=== PATIENT | male | born 1950 | race Caucasian/White ===

== ENCOUNTER 2021-07-21 06:59 | Day surgery (SDC) | payer OTHER ==
[2021-07-20 14:20] LABS: Absolute Lymphocytes (CBC) 1.4 K/uL (0.7-4.9); Hematocrit 42.7 % (39.6-49.0); Lymphocytes % 20.9 % (15.3-44.8); MPV 8.1 fL (7.6-11.3); RBC Red Blood Cell Count 4.76 M/uL (4.33-5.43)
[2021-07-20 14:30] LABS: Potassium 4.1 mmol/L (3.5-5.1)
[2021-07-20 14:43] LABS: Protime INR 2.28
[~2021-07-21 06:59] MED LIST: ATROPINE SULF 1 MG/10 ML SYR IV ONE; METOPROLOL TARTRATE 5 MG/5 ML INJ IV ONE; MIDAZOLAM HCL 10 ML ONE
[2021-07-21] MEDS ORDERED: NA CHLORIDE 0.9% 500 ML ONE (07:08)
[2021-07-21] MEDS ORDERED: FLUMAZENIL 0.1 MG/ML (5 mL VIAL) IV ONE (07:08)
[2021-07-21 07:51] VITALS: O2SAT 100
[2021-07-21 09:31] VITALS: BP 107/64
--- NOTE | 2021-07-22 18:01 | EKG ---
Test Date: 2021-07-21 Test Time: 08:15:42 Policy Writer: MEASUREMENT RESULTS: Intervals: Rate: 69 RI: 200 QRSD: 144 QT: 454 QTc: 486 [place]: P: 48 RI: 200 QRS: -43 T: 123 INTERPRETIVE STATEMENTS: Demand pacemaker, interpretation is based on intrinsic rhythm Sinus rhythm with premature ventricular complexes or fusion complexes Left axis deviation Right bundle branch block Left ventricular hypertrophy with repolarization abnormality Abnormal ECG No previous ECG available for comparison Electronically Signed On 07-22-21 17:58:37 CDT by Shashank Sanchez
--- NOTE | 2021-07-24 15:05 | OP ---
Date of Procedure: 07/21/2021 Surgeon: Jg Roberto MD Procedure: Direct current cardioversion. Indication: Recurrent atrial fibrillation, status post ablation, pacemaker. Had failed amiodarone, beta brian, sotalol. Procedure In Detail: Brought to recovery room as an outpatient on 07/21/2021. He was given 10 mg of IV Versed x1. He was given 1 shock of 100 joules and it converted to sinus rhythm. There were no complications or blood loss. Final Diagnosis: Status post successful cardioversion from atrial fibrillation to sinus rhythm. We will double his metoprolol. Continue his anticoagulants. He can go home today and see me in the office in 2 weeks. in the office in 2 weeks. Continue metoprolol and anticoagulants. CLIFFORD/WINDY Voice ID: [id number] Report ID: [id number]
== END 2021-07-21 09:23 | disposition home or self-care (01) ==
LOC: CCL 06:59
DX: I48.0 Paroxysmal atrial fibrillation (principal); I49.3 Ventricular premature depolarization; I34.0 Nonrheumatic mitral (valve) insufficiency; I34.1 Nonrheumatic mitral (valve) prolapse; E78.2 Mixed hyperlipidemia; Z95.0 Presence of cardiac pacemaker; Z20.822 Contact with and (suspected) exposure to COVID-19
CPT/HCPCS: 36415; 80048; 85025; 85610; 85730; 92960; 93005; J2250; J7040; U0002

== ENCOUNTER 2021-09-20 10:32 | Day surgery (SDC) | payer OTHER ==
[2021-09-19 11:55] LABS: Absolute Lymphocytes (CBC) 1.2 K/uL (0.7-4.9); Hematocrit 43.1 % (39.6-49.0); Lymphocytes % 17.4 % (15.3-44.8); MCV 90.4 fL (80-100); MPV 8.4 fL (7.6-11.3); RBC Red Blood Cell Count 4.76 M/uL (4.33-5.43)
[2021-09-19 12:02] LABS: Protime INR 1.03
--- NOTE | 2021-09-19 12:03 | RAD REPORT ---
EXAM DESCRIPTION: RAD - Chest Pa And Lat (2 Views) - 09/19/2021 11:37 am CLINICAL HISTORY: pre procedure screening, atrial fibrillation COMPARISON: None TECHNIQUE: Frontal and lateral views of the chest were obtained. FINDINGS: The lungs are clear of a peripheral mass or consolidation. Interstitial pattern is mildly prominent suspected to be baseline. Acute failure or volume overload are not suspected. Two lead left subclavian pacemaker is present. Heart size is normal and central vasculature is within normal limits. No pleural effusion or pneu mothorax seen. No acute bony finding noted. No aortic abnormality. IMPRESSION: No acute cardiopulmonary process.
[2021-09-19 12:13] LABS: Potassium 3.9 mmol/L (3.5-5.1)
[2021-09-19 12:20] LABS: SARS-CoV-2 Antigen Rapid Res Negative (Negative)
--- NOTE | 2021-09-19 13:17 | EKG ---
Test Date: 2021-09-19 Test Time: 11:28:33 [employer] Vp: EMANUEL MEASUREMENT RESULTS: Intervals: Rate: 60 ID: [id number] QRSD: 106 QT: 444 QTc: 444 [place]: P: ID: [id number] QRS: 38 T: 19 INTERPRETIVE STATEMENTS: Electronic atrial pacemaker Compared to ECG 07/21/2021 08:15:42 Ventricular-paced complex(es) or rhythm no longer present Sinus rhythm no longer present Fusion complex(es) no longer present Ventricular premature complex(es) no longer present Left-axis deviation no longer present Right bundle-branch block no longer present Left ventricular hypertrophy no longer present Early repolarization no longer present Electronically Signed On 09-19-21 13:17:22 CDT by Shashank Sanchez
[~2021-09-20 10:32] MED LIST changes: +FENTANYL CITR 100 MCG/2 ML ONE; -METOPROLOL TARTRATE 5 MG/5 ML INJ IV ONE; -MIDAZOLAM HCL 10 ML ONE; +MIDAZOLAM HCL 2 MG/2 ML INJ ONE; +NA CHLORIDE 0.9% 0 ML IV ONE; +NA CHLORIDE 0.9% 500 ML ONE
[2021-09-20] MEDS ORDERED: MIDAZOLAM HCL 2 MG/2 ML INJ ONE (11:06)
[2021-09-20 12:17] VITALS: O2SAT 100
[2021-09-20 12:48] VITALS: BP 135/75; TEMP 97.1
--- NOTE | 2021-09-20 17:11 | OP ---
Surgeon: Jg Roberto MD Catechist: Ms. Jaqueline Guzman. Admitted to my service as an outpatient today 09/20/2021 for left heart catheterization, selective co ronary arteriogram. He underwent a common femoral artery angiogram as well. Indication: Mr. Elizalde is a 70-year-old white male. He is planning to have mitral valve repair, a M icroMaze procedure as well as left atrial appendage closure by Dr. Dylan Pompa and he was required to do a heart catheterization before the procedure. Procedure In Detail: He was brought to the senior label specialist today as an outpatient, prepped and draped in ro utine sterile fashion. Given Versed and fentanyl for sedation. A 6-[place] sheath introduced in the right common femoral artery successfully using 10 cc of Xylocaine and Seldinger technique. Nunu c atheters left and right were used to cannulate the left main and the right main respectively. He was found to have normal coronaries. There were no complications. Blood loss was 5 cc. Total consciou s sedation 30 minutes. Postoperative Diagnoses: Mitral regurgitation, severe mitral valve prolapse, severe atrial fibrillat ion, normal coronaries. Plan: Plan for mitral valve repair, left atrial appendage closure as well as a MicroMaze for his atr ial fibrillation. Case was discussed with Dr. Pompa and with the patient and with . . He has an appointment coming up with Dr. Pompa in 2 days. Common femoral artery angiogram was normal. Ang io-Seal was used to close the case. CLIFFORD/LENARDL Voice ID: [id number] Report ID: [id number]
== END 2021-09-20 13:10 | disposition home or self-care (01) ==
LOC: CCL 10:32
DX: I34.1 Nonrheumatic mitral (valve) prolapse (principal); I34.0 Nonrheumatic mitral (valve) insufficiency; I48.0 Paroxysmal atrial fibrillation; E78.2 Mixed hyperlipidemia; Z95.0 Presence of cardiac pacemaker; Z20.822 Contact with and (suspected) exposure to COVID-19
CPT/HCPCS: 93005; 85025; 80048; 36415; 85610; 85730; 71046; 93454; 87811; C1893; Q9966; C1760; G0269; J2250 ×2; J3010; J7040; J0583